=== PATIENT | male | born 1990 | race Two or more races ===

== ENCOUNTER 2024-12-06 20:38 | Emergency (ER) | payer OTHER, MEDICAID, SELFPAY ==
[2024-12-06 20:43] VITALS: PULSE 148; RESP 26; TEMP 37.2; O2SAT 99
[2024-12-06 20:45] VITALS: BMI 31.7
[2024-12-06 20:59] VITALS: BP 124/69; PULSE 136; RESP 24; O2SAT 99
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
== END 2024-12-06 21:26 ==
PROVIDERS: Emergency Provider Emergency Medicine
DX: Z02.89 Encounter for other administrative examinations (principal)
CPT/HCPCS: 99283; A9270